=== PATIENT | female | born 1980 | race Caucasian/White ===

== ENCOUNTER 2019-02-12 20:06 | Emergency (ER) | payer MEDICAID ==
[2019-02-12 20:44] VITALS: BP 159/67
--- NOTE | 2019-02-12 21:10 | EDM.PDOC ---
ED HPI GENERAL MEDICAL PROBLEM - General Chief Complaint: Skin Complaint Stated Complaint: RASH Time Seen by Provider: 02/12/19 21:02 Source of Information: Reports: Patient, Family, RN Notes Reviewed History Limitations: Reports: No Limitations - History of Present Illness INITIAL COMMENTS - FREE TEXT/NARRATIVE: 38-year-old female presents emergency department today with complaint of bugs and rash in her scalp - Related Data Allergies Allergy/AdvReac Type Severity Reaction Status Date / Time cephalexin Allergy Rash Verified 09/21/16 21:44 divalproex sodium Allergy Cannot Verified 09/21/16 21:44 [From Depakote] Remember latex Allergy Rash Verified 09/21/16 21:44 Home Meds: Home Meds Albuterol [Proair HFA] 2 puff IH Q6HR PRN 02/27/16 [History] Fluticasone Propionate [Flovent HFA 44 mcg] 2 puff IH BID PRN 02/27/16 [History ] Ranitidine HCl [Ranitidine] 150 mg PO BID 02/27/16 [History] Venlafaxine HCl [Venlafaxine ER] 300 mg PO DAILY 02/27/16 [History] Simvastatin [Zocor] 5 mg PO BEDTIME 08/30/16 [History] Acetaminophen/oxyCODONE [Percocet 325-5 MG] 1 - 2 tab PO Q4H PRN #50 tablet [Rx] Ibuprofen [IJD: Ibuprofen] 600 mg PO QID PRN 09/21/16 [History] Aspirin [[place] Aspirin EC] 81 mg PO DAILY 07/31/18 [History] Carbamide Peroxide [Debrox 6.5% Otic Soln] 5 drop EARBOTH BID 07/31/18 [History] Divalproex Sodium [Depakote] 1,000 mg PO BEDTIME 07/31/18 [History] Divalproex Sodium [Depakote] 500 mg PO DAILY 07/31/18 [History] Polyethylene Glycol 3350 [MiraLAX] 17 g PO DAILY 07/31/18 [History] SUMAtriptan Succinate [Imitrex] 25 mg PO ASDIRECTED PRN 07/31/18 [History] Sennosides/Docusate Sodium [Senokot-S Tablet] 2 tab PO DAILY 07/31/18 [History] Past Medical History HEENT History: Reports: Impaired Vision, Other (See Below) Other HEENT History: glasses Cardiovascular History: Reports: Heart Murmur Other Cardiovascular History: heart murmur as child Respiratory History: Reports: Asthma, Sleep Apnea, SOB Gastrointestinal History: Reports: Gastritis, GERD [employer]OUTE [employer] History: Reports: Musculoskeletal History: Reports: Fracture Neurological History: Reports: Brain Injury, Concussion, CVA, Migraines, Seizure Psychiatric History: Reports: Anxiety, Depression Endocrine/Metabolic History: Reports: Obesity/BMI 30+ - Infectious Disease History Infectious Disease History: Reports: Chicken Pox - Past Surgical History GI Surgical History: Reports: EGD, Hernia Repair/Other Female Surgical History: Reports: Section, Tubal Ligation Musculoskeletal Surgical History: Reports: Other (See Below) Social & Family History - Family History Family Medical History: Noncontributory - Tobacco Use Smoking Status *Q: Current Every Day Smoker Years of Tobacco use: 20 Packs/Tins Daily: 1 - Caffeine Use Caffeine Use: Reports: Coffee - Recreational Drug Use Recreational Drug Use: Yes Drug Use in Last 12 Months: No Recreational Drug Type: Reports: Methamphetamine ED ROS GENERAL - Review of Systems Review Of Systems: See Below Constitutional: Reports: No Symptoms Skin: Reports: Rash, Other (She does have a sample of live bugs that she is pulled off her scalp) ED EXAM, SKIN/RASH Exam: See Below Text/Narrative:: Macular papular rash back of the neck and scalp with itch scratch cycle, small lice are present in her Ziploc bag Exam Limited By: No Limitations General Appearance: Alert, WD/WN, No Apparent Distress Course - Vital Signs Last Recorded V/S: Last Vital Signs Temp 96.2 F 02/12/19 20:58 Pulse 78 02/12/19 20:58 Resp 16 02/12/19 20:58 BP 159/67 H 02/12/19 20:58 Pulse Ox 99 02/12/19 20:58 - Orders/Labs/Meds Orders: Active Orders 24 hr Category Date Time Status Permethrin Med 02/12/19 21:05 Once 1 gm TOP ONETIME ONE Departure - Departure Time of Disposition: 21:09 Disposition: Home, Self-Care 01 Condition: Good Clinical Impression: Pediculosis capitis - Discharge Information Referrals: Dorothea Galarza PA [Primary Care Provider] - Additional Instructions: Take the permethrin treatment follow-up primary care in 5-7 days if no improvement - My Orders Last 24 Hours: My Active Orders 02/12/19 21:05 Permethrin 1 gm TOP ONETIME ONE - Assessment/Plan Last 24 Hours: My Active Orders 02/12/19 21:05 Permethrin 1 gm TOP ONETIME ONE Plan: Assessment Acuity = acute Site and laterality = pediculosis Etiology = lice Manifestations = rash Location of injury = Home Lab values = none Plan Permethrin 1 and may repeat in 7 days follow-up primary care 5-7 days no improvement handout provided lice infection This note was dictated using [employer] voice recognition software please call with any questions on syntax or grammar.
== END 2019-02-12 21:43 | disposition home or self-care (01) ==
LOC: JP.ED 20:06
DX: B85.0 Pediculosis due to Pediculus humanus capitis (principal); R23.8 Other skin changes; J45.909 Unspecified asthma, uncomplicated; F17.210 Nicotine dependence, cigarettes, uncomplicated; Z88.1 Allergy status to other antibiotic agents; Z91.040 Latex allergy status; Z79.899 Other long term (current) drug therapy; Z79.82 Long term (current) use of aspirin
CPT/HCPCS: 99282; A9270-GY

== ENCOUNTER 2019-04-30 17:36 | Emergency (ER) | payer MEDICAID ==
[2019-04-30 17:40] VITALS: BP 141/72; PULSE 70
[2019-04-30] MEDS ORDERED: Amoxicillin/Clavulanate K 500-125 MG Tab PO ONE (17:59)
[2019-04-30] MEDS ORDERED: Ketorolac 60 MG/2 ML SDV IM ONE (17:59)
--- NOTE | 2019-04-30 18:05 | EDM.PDOC ---
ED HPI GENERAL MEDICAL PROBLEM - General Chief Complaint: General Stated Complaint: TOOTH ACHE Time Seen by Provider: 04/30/19 17:46 Source of Information: Reports: Patient History Limitations: Reports: No Limitations - History of Present Illness INITIAL COMMENTS - FREE TEXT/NARRATIVE: 38 yo female presents [facility]IA EMS with left upper dental pain. pt has dental appt in 2 days. over the last 24 hours pain has increased. pt last took tylenol yesterday. afebrile. pt rates pain 8/10 but sitting comfortably on cot. Does state taht she ate a popcycle prior to calling and ambulance and at that time pain was very severe. Left Upper Face/Facial Pain Score (Numeric/FACES): 8 - Related Data Allergies Allergy/AdvReac Type Severity Reaction Status Date / Time cephalexin Allergy Rash Verified 09/21/16 21:44 divalproex sodium Allergy Cannot Verified 09/21/16 21:44 [From Depakote] Remember latex Allergy Rash Verified 09/21/16 21:44 Home Meds: Home Meds Albuterol [Proair HFA] 2 puff IH Q6HR PRN 02/27/16 [History] Fluticasone Propionate [Flovent HFA 44 mcg] 2 puff IH BID PRN 02/27/16 [History ] Ranitidine HCl [Ranitidine] 150 mg PO BID 02/27/16 [History] Venlafaxine HCl [Venlafaxine ER] 300 mg PO DAILY 02/27/16 [History] Simvastatin [Zocor] 5 mg PO BEDTIME 08/30/16 [History] Acetaminophen/oxyCODONE [Percocet 325-5 MG] 1 - 2 tab PO Q4H PRN #50 tablet [Rx] Ibuprofen [IJD: Ibuprofen] 600 mg PO QID PRN 09/21/16 [History] Aspirin [[place] Aspirin EC] 81 mg PO DAILY 07/31/18 [History] Carbamide Peroxide [Debrox 6.5% Otic Soln] 5 drop EARBOTH BID 07/31/18 [History] Divalproex Sodium [Depakote] 1,000 mg PO BEDTIME 07/31/18 [History] Divalproex Sodium [Depakote] 500 mg PO DAILY 07/31/18 [History] Polyethylene Glycol 3350 [MiraLAX] 17 g PO DAILY 07/31/18 [History] SUMAtriptan Succinate [Imitrex] 25 mg PO ASDIRECTED PRN 07/31/18 [History] Sennosides/Docusate Sodium [Senokot-S Tablet] 2 tab PO DAILY 07/31/18 [History] Past Medical History HEENT History: Reports: Impaired Vision, Other (See Below) Other HEENT History: glasses Cardiovascular History: Reports: Heart Murmur Other Cardiovascular History: heart murmur as child Respiratory History: Reports: Asthma, Sleep Apnea, SOB Gastrointestinal History: Reports: Gastritis, GERD [employer] History: Reports: Musculoskeletal History: Reports: Fracture Neurological History: Reports: Brain Injury, Concussion, CVA, Migraines, Seizure Psychiatric History: Reports: Anxiety, Depression Endocrine/Metabolic History: Reports: Obesity/BMI 30+ - Infectious Disease History Infectious Disease History: Reports: Chicken Pox - Past Surgical History Head Surgeries/Procedures: Reports: None GI Surgical History: Reports: EGD, Hernia Repair/Other Female Surgical History: Reports: Section, Tubal Ligation Musculoskeletal Surgical History: Reports: Other (See Below) Social & Family History - Family History Family Medical History: Noncontributory - Tobacco Use Smoking Status *Q: Light Tobacco Smoker Years of Tobacco use: 30 Packs/Tins Daily: 1 - Caffeine Use Caffeine Use: Reports: Coffee - Recreational Drug Use Recreational Drug Use: No ED ROS GENERAL - Review of Systems Review Of Systems: See Below Constitutional: Denies: Fever, Chills Respiratory: Denies: Shortness of Breath, Wheezing Cardiovascular: Denies: Chest Pain ED EXAM, GENERAL - Physical Exam Exam: See Below Exam Limited By: No Limitations General Appearance: Alert, WD/WN, No Apparent Distress Throat/Mouth: Inflammation, Other (poor dentation, edema surrounding the broken teeth.) Neurological: Alert, Oriented Lymphatic: No Adenopathy Course - Vital Signs Last Recorded V/S: Last Vital Signs Temp 37.2 C 04/30/19 17:40 Pulse 70 04/30/19 17:40 Resp 16 04/30/19 17:40 BP 141/72 H 04/30/19 17:40 Pulse Ox 88 L 04/30/19 17:40 - Orders/Labs/Meds Meds: Medications Discontinued Medications Generic Name Dose Route Start Last Admin Trade Name Freq PRN Reason Stop Dose Admin Amoxicillin/Clavulanate Potassium 1 tab 04/30/19 17:59 Augmentin 500 Mg\125 Mg PO 04/30/19 18:00 ONETIME ONE Ketorolac Tromethamine 60 mg 04/30/19 17:59 Toradol IM 04/30/19 18:00 ONETIME ONE - Re-Assessments/Exams Free Text/Narrative Re-Assessment/Exam: 04/30/19 18:33 given oral and IM pain medications Departure - Departure Time of Disposition: 18:33 Disposition: Home, Self-Care 01 Condition: Good Clinical Impression: Pain, dental - Discharge Information *PRESCRIPTION DRUG MONITORING PROGRAM REVIEWED*: Yes *COPY OF PRESCRIPTION DRUG MONITORING REPORT IN PATIENT KIMBERLY: Not Applicable (i did not prescribe controled medication) Referrals: PCP,None [Primary Care Provider] - Forms: ED Department Discharge Additional Instructions: AUGMENTIN 500 twice daily for 10 days, first dose was given in emergency room Ibuprofen 600 mg every 6 hours as needed for pain may use tylenol 1000 mg every 6 hours for break through pain ice to jaw
== END 2019-04-30 18:57 | disposition home or self-care (01) ==
LOC: JP.ED 17:36
DX: K08.89 Other specified disorders of teeth and supporting structures (principal); J45.909 Unspecified asthma, uncomplicated; F17.210 Nicotine dependence, cigarettes, uncomplicated; Z88.1 Allergy status to other antibiotic agents; Z91.040 Latex allergy status; Z79.899 Other long term (current) drug therapy
CPT/HCPCS: 96372; 99282; A9270; J1885

== ENCOUNTER 2021-08-30 19:17 | Emergency (ER) | payer MEDICAID ==
--- NOTE | 2021-08-30 19:47 | EDM.PDOC ---
ED HPI GENERAL MEDICAL PROBLEM - General Chief Complaint: Chest Pain Stated Complaint: [facility] Time Seen by Provider: 08/30/21 19:43 Source of Information: Reports: Patient, EMS History Limitations: Reports: No Limitations - History of Present Illness INITIAL COMMENTS - FREE TEXT/NARRATIVE: pt drveloped upper abdomanal pain which then did move to her chest. By the time she got here her pain was back in the abdoman. Onset: Sudden Duration: Hour(s): Location: Reports: Chest, Abdomen Associated Symptoms: Reports: Chest Pain, Other ( epigastric pain) epigastric Pain Score (Numeric/FACES): 8 - Related Data Allergies Allergy/AdvReac Type Severity Reaction Status Date / Time cephalexin Allergy Rash Verified 08/30/21 19:31 divalproex sodium Allergy Cannot Verified 08/30/21 19:31 [From Depakote] Remember latex Allergy Rash Verified 08/30/21 19:31 Home Meds: Home Meds Albuterol [Proair HFA] 2 puff IH Q6HR PRN 02/27/16 [History] Fluticasone Propionate [Flovent HFA 44 mcg] 2 puff IH BID PRN 02/27/16 [History] Simvastatin [Zocor] 5 mg PO BEDTIME 08/30/16 [History] Acetaminophen/oxyCODONE [Percocet 325-5 MG] 1 - 2 tab PO Q4H PRN #50 tablet 09/01/16 [Rx] Ibuprofen [IJD: Ibuprofen] 600 mg PO QID PRN 09/21/16 [History] Aspirin [[place] Aspirin EC] 81 mg PO DAILY 07/31/18 [History] Carbamide Peroxide [Debrox 6.5% Otic Soln] 5 drop EARBOTH BID 07/31/18 [History] Divalproex Sodium [Depakote] 1,000 mg PO BEDTIME 07/31/18 [History] Divalproex Sodium [Depakote] 500 mg PO DAILY 07/31/18 [History] SUMAtriptan succinate [Imitrex] 25 mg PO ASDIRECTED PRN 07/31/18 [History] Sennosides/Docusate Sodium [Senokot-S Tablet] 2 tab PO DAILY 07/31/18 [History] polyethylene glycoL 3350 [MiraLAX] 17 g PO DAILY 07/31/18 [History] Past Medical History HEENT History: Reports: Impaired Vision, Other (See Below) Other HEENT History: glasses Cardiovascular History: Reports: Heart Murmur, [place] Other Cardiovascular History: heart murmur as child Respiratory History: Reports: Asthma, Sleep Apnea, SOB Gastrointestinal History: Reports: Gastritis, GERD Genitourinary History: Reports: None [employer] History: Reports: Musculoskeletal History: Reports: Fracture Neurological History: Reports: Brain Injury, Concussion, CVA, Migraines, Seizure Psychiatric History: Reports: Anxiety, Depression Endocrine/Metabolic History: Reports: Obesity/BMI 30+ - Infectious Disease History Infectious Disease History: Reports: Chicken Pox - Past Surgical History Head Surgeries/Procedures: Reports: None Respiratory Surgical History: Reports: None GI Surgical History: Reports: EGD, Hernia Repair/Other, Other (See Below) Other GI Surgeries/Procedures: umbilical hernia repair Female Surgical History: Reports: Section, Tubal Ligation Endocrine Surgical History: Reports: None Neurological Surgical History: Reports: None Musculoskeletal Surgical History: Reports: Other (See Below) Other Musculoskeletal Surgeries/Procedures:: right foot fracture Social & Family History - Family History Family Medical History: No Pertinent Family History - Tobacco Use Tobacco Use Status *Q: Current Every Day Tobacco User Years of Tobacco use: 25 Packs/Tins Daily: 1 - Caffeine Use Caffeine Use: Reports: Coffee - Recreational Drug Use Recreational Drug Use: No ED ROS GENERAL - Review of Systems Review Of Systems: See Below Constitutional: Reports: Malaise, Decreased Appetite HEENT: Reports: No Symptoms Cardiovascular: Reports: Chest Pain Endocrine: Reports: No Symptoms GI/Abdominal: Reports: Abdominal Pain : Reports: No Symptoms Musculoskeletal: Reports: No Symptoms Skin: Reports: No Symptoms Neurological: Reports: No Symptoms Psychiatric: Reports: Anxiety ED EXAM, GENERAL - Physical Exam Exam: See Below Free Text/Narrative:: pt arrived stating that she is not feeling well. She feels that the tramodol is not setting with the rest of her meds. She is having midabdomanal pain. pt is alot more sob than usual. She is breathuing rapidly. Exam Limited By: No Limitations General Appearance: Alert, Anxious, Mild Distress Ears: Normal TMs Nose: Normal Inspection Throat/Mouth: Normal Inspection Head: Atraumatic Neck: Normal Inspection Respiratory/Chest: Decreased Breath Sounds, Other ( rapid resp. ) Cardiovascular: Regular Rate, Rhythm GI/Abdominal: Tender (Female) Exam: Deferred Rectal (Female) Exam: Deferred Back Exam: Normal Inspection Extremities: Normal Inspection Neurological: Alert, Oriented, Normal Cognition Course - Vital Signs Last Recorded V/S: Last Vital Signs Temp 36.5 C 08/30/21 19:35 Pulse 74 08/30/21 21:08 Resp 14 08/30/21 20:35 BP 115/53 L 08/30/21 21:08 Pulse Ox 100 08/30/21 19:35 - Orders/Labs/Meds Labs: Laboratory Tests 08/30/21 08/30/21 08/30/21 Range/Units 19:32 19:32 19:32 WBC 8.1 (4.5-11.0) K/uL RBC 4.54 (3.30-5.50) M/uL Hgb 14.1 (12.0-15.0) g/dL Hct 42.7 (36.0-48.0) % MCV 94 (80-98) fL MCH 31 (27-31) pg MCHC 33 (32-36) % Plt Count 290 (150-400) K/uL Neut % (Auto) 54.9 (36-66) % Lymph % (Auto) 33.9 (24-44) % Jenkins % (Auto) 8.1 H (2-6) % Eos % (Auto) 2.7 (2-4) % Baso % (Auto) 0.4 (0-1) % Sodium 144 (140-148) mmol/L Potassium 4.5 (3.6-5.2) mmol/L Chloride 108 (100-108) mmol/L Carbon Dioxide 27 (21-32) mmol/L Anion Gap 8.6 (5.0-14.0) mmol/L BUN 17 (7-18) mg/dL Creatinine 1.0 (0.6-1.0) mg/dL Est Cr Clr Drug Dosing 67.29 mL/min Estimated GFR (MDRD) > 60 (>60) Glucose 89 (74-106) mg/dL Calcium 8.7 (8.5-10.1) mg/dL Total Bilirubin 0.3 (0.2-1.0) mg/dL AST 13 L (15-37) U/L ALT 20 (12-78) U/L Alkaline Phosphatase 79 (46-116) U/L Troponin I (0.000-0.056) ng/mL C-Reactive Protein 0.09 (0.0-0.3) mg/dL Total Protein 7.3 (6.4-8.2) g/dL Albumin 3.4 (3.4-5.0) g/dL Globulin 3.9 H (2.3-3.5) g/dL Albumin/Globulin Ratio 0.9 L (1.2-2.2) Amylase 42 (25-115) U/L Lipase 104 (73-393) U/L 08/30/21 Range/Units 20:04 WBC (4.5-11.0) K/uL RBC (3.30-5.50) M/uL Hgb (12.0-15.0) g/dL Hct (36.0-48.0) % MCV (80-98) fL MCH (27-31) pg MCHC (32-36) % Plt Count (150-400) K/uL Neut % (Auto) (36-66) % Lymph % (Auto) (24-44) % Jenkins % (Auto) (2-6) % Eos % (Auto) (2-4) % Baso % (Auto) (0-1) % Sodium (140-148) mmol/L Potassium (3.6-5.2) mmol/L Chloride (100-108) mmol/L Carbon Dioxide (21-32) mmol/L Anion Gap (5.0-14.0) mmol/L BUN (7-18) mg/dL Creatinine (0.6-1.0) mg/dL Est Cr Clr Drug Dosing mL/min Estimated GFR (MDRD) (>60) Glucose (74-106) mg/dL Calcium (8.5-10.1) mg/dL Total Bilirubin (0.2-1.0) mg/dL AST (15-37) U/L ALT (12-78) U/L Alkaline Phosphatase (46-116) U/L Troponin I < 0.017 (0.000-0.056) ng/mL C-Reactive Protein (0.0-0.3) mg/dL Total Protein (6.4-8.2) g/dL Albumin (3.4-5.0) g/dL Globulin (2.3-3.5) g/dL Albumin/Globulin Ratio (1.2-2.2) Amylase (25-115) U/L Lipase (73-393) U/L Meds: Medications Discontinued Medications Generic Name Dose Route Start Last Admin Trade Name [place] PRN Reason Stop Dose Admin Al Hydroxide/Mg Hydroxide 15 0 ml 08/30/21 20:03 ml/ Lidocaine HCl 15 ml PO 08/30/21 20:04 ONETIME ONE Pantoprazole Sodium 40 mg 08/30/21 20:31 08/30/21 20:47 Pantoprazole 40 Mg Vial IVPUSH 08/30/21 20:32 40 mg ONETIME ONE Administration - Re-Assessments/Exams Free Text/Narrative Re-Assessment/Exam: 09/02/21 07:38 pt started with abdomanal pain which moved to her chest. Whn she got here she was once again having abdomanal pain 09/02/21 07:39 pt had a neg trop and hr pain did go completely away. Departure - Departure Time of Disposition: 21:43 Disposition: Home, Self-Care 01 Condition: Fair Clinical Impression: Abdominal pain, Chronic GERD, Gallbladder attack Instructions: Abdominal Pain, Adult, Gastroesophageal Reflux Disease, Adult Referrals: PCP,None [Primary Care Provider] - Forms: ED Department Discharge Care Plan Goals: Return to clinic as an outpatient for limited abdomen Ultra sound, they will call to set up appointment, Pepcid 20mg twice daily , schedule appt with [facility] followup and for results of the abdominal ultra sound. Sepsis Event Note (ED) - Evaluation Sepsis Screening Result: No Definite Risk
[2021-08-30] MEDS ORDERED: Alum Hydrox/Mag Hydrox/Simeth 15 ML, Lidocaine 2% 15 ML PO ONE ×2 (20:03)
[2021-08-30] MEDS ORDERED: Pantoprazole 40 MG Vial IVPUSH ONE (20:31)
[2021-08-30 21:09] VITALS: BP 115/53; PULSE 74
== END 2021-08-30 21:58 | disposition home or self-care (01) ==
LOC: JP.ED 19:17
DX: K21.9 Gastro-esophageal reflux disease without esophagitis (principal); K82.9 Disease of gallbladder, unspecified; I25.2 Old myocardial infarction; E66.9 Obesity, unspecified; Z86.73 Personal history of transient ischemic attack (TIA), and cerebral infarction without residual deficits; Z88.1 Allergy status to other antibiotic agents; Z91.040 Latex allergy status; Z88.8 Allergy status to other drugs, medicaments and biological substances; Z72.0 Tobacco use; Z68.38 Body mass index [BMI] 38.0-38.9, adult
CPT/HCPCS: 36415; 80053; 82150; 83690; 84484; 85025; 86140; 93005; 96374; 99284; C9113

== ENCOUNTER 2022-03-23 18:37 | Emergency (ER) | payer MEDICAID ==
[2022-03-23 19:12] VITALS: BP 150/74; PULSE 96
== END 2022-03-23 20:36 | disposition home or self-care (01) ==
LOC: JP.ED 18:37
DX: S83.411A Sprain of medial collateral ligament of right knee, initial encounter (principal); E78.00 Pure hypercholesterolemia, unspecified; I25.2 Old myocardial infarction; K21.9 Gastro-esophageal reflux disease without esophagitis; F17.210 Nicotine dependence, cigarettes, uncomplicated; E66.9 Obesity, unspecified; Z68.38 Body mass index [BMI] 38.0-38.9, adult; Z88.1 Allergy status to other antibiotic agents; Z91.040 Latex allergy status; Z88.8 Allergy status to other drugs, medicaments and biological substances; Z79.82 Long term (current) use of aspirin; Z79.899 Other long term (current) drug therapy; Z86.73 Personal history of transient ischemic attack (TIA), and cerebral infarction without residual deficits; W18.39XA Other fall on same level, initial encounter
CPT/HCPCS: 73564-26-RT; 73564-RT; 99282; 99283

== ENCOUNTER 2023-06-20 11:08 | Emergency (ER) | payer MEDICAID ==
[2023-06-20 11:23] VITALS: BP 129/110; PULSE 83
== END 2023-06-20 13:36 | disposition home or self-care (01) ==
LOC: JP.ED 11:08
DX: Z53.21 Procedure and treatment not carried out due to patient leaving prior to being seen by health care provider (principal)

== ENCOUNTER 2024-11-23 18:30 | Emergency (ER) | payer MEDICAID ==
[2024-11-23 19:51] LABS: BASOPHILS ABSOLUTE AUTO 0.05 K/uL (0.00-0.10); BASOPHILS PERCENT AUTO 0.4 % (0.1-1.3); EOSINOPHILS ABSOLUTE AUTO 0.19 K/uL (0.00-0.40); EOSINOPHILS PERCENT AUTO 1.7 % (0.0-5.4); HEMATOCRIT 42.5 % (34.3-46.0); HEMOGLOBIN 14.3 g/dL (11.2-15.5); IMMATURE GRAN ABSOLUTE AUTO 0.03 K/uL (0.00-0.23); IMMATURE GRAN PERCENT AUTO 0.3 % (0.0-0.7); LYMPHOCYTES ABSOLUTE AUTO 1.59 K/uL (0.8-3.3); LYMPHOCYTES PERCENT AUTO 13.9 % (11.4-47.7); MEAN CORPUSCULAR HEMOGLOBIN 31.4 pg (31.6-35.5); MEAN CORPUSCULAR HGB CONC 33.6 g/dL (31.6-35.5); MEAN CORPUSCULAR VOLUME 93.4 fL (81.4-99.0); MONOCYTES ABSOLUTE AUTO 0.66 K/uL (0.20-0.90); MONOCYTES PERCENT AUTO 5.8 % (3.3-12.6); NEUTROPHILS ABSOLUTE AUTO 8.94 K/uL (1.0-7.6); NEUTROPHILS PERCENT AUTO 77.9 % (40.0-78.1); PLATELET COUNT,PLT 165 K/uL (130-375); RED BLOOD CELL COUNT 4.55 M/uL (3.77-5.24); WHITE BLOOD CELL COUNT,WBC 11.5 K/uL (3.2-11.0)
[2024-11-23 20:08] LABS: A/G RATIO 0.8 (1.2-2.2); ALANINE AMINOTRANSFERASE,ALT 17 U/L (12-78); ALBUMIN 3.8 g/dL (3.4-5.0); ALKALINE PHOSPHATASE 102 U/L (46-116); ASPARTATE AMNIOTRANSFERASE,AST 14 U/L (15-37); BILIRUBIN TOTAL 1.4 mg/dL (0.2-1.0); BLOOD UREA NITROGEN,BUN 20 mg/dL (7-18); CALCIUM 9.2 mg/dL (8.5-10.1); CARBON DIOXIDE,CO2 26 mmol/L (21-32); CHLORIDE,CL 104 mmol/L (100-108); CREATININE 1.1 mg/dL (0.6-1.0); ESTIMATED GFR 64 mL/min (>60); GLUCOSE RANDOM 91 mg/dL (74-106); POTASSIUM,K 4.3 mmol/L (3.6-5.2); PROTEIN TOTAL,TP 8.4 g/dL (6.4-8.2); SODIUM,NA 139 mmol/L (140-148)
[2024-11-23 20:09] LABS: ANION GAP 13.3 mmol/L (5.0-14.0)
[2024-11-23 20:14] VITALS: BP 117/73; PULSE 81
[2024-11-23] MEDS: Acetaminophen Soln 650 MG/20.3 ML UD Cup PO ONE (20:34)
[2024-11-23 20:39] LABS: APPEARANCE,URINE SLIGHTLY CLOUDY (CLEAR); BILIRUBIN,URINE NEGATIVE (NEGATIVE); COLOR,URINE YELLOW (YELLOW); GLUCOSE,URINE NEGATIVE (NEGATIVE); KETONES,URINE NEGATIVE (NEGATIVE); LEUKOCYTE ESTERASE,URINE NEGATIVE (NEGATIVE); NITRITE,URINE NEGATIVE (NEGATIVE); OCCULT BLOOD,URINE TRACE-INTACT (NEGATIVE); PH,URINE 5.5 (5.0-8.0); PROTEIN,URINE 100 mg/dL (NEGATIVE); UROBILINOGEN,URINE 0.2 EU/dL (0.2-1.0)
[2024-11-23 20:48] LABS: AMORPHOUS SEDIMENT,URINE NOT SEEN; BACTERIA,URINE MODERATE; EPITHELIAL CELLS,URINE MANY; MUCUS,URINE FEW; WBC,URINE 0-5 (0-5)
== END 2024-11-23 21:15 | disposition home or self-care (01) ==
LOC: JP.ED 18:30
DX: R56.9 Unspecified convulsions (principal); E78.00 Pure hypercholesterolemia, unspecified; I25.2 Old myocardial infarction; Z88.1 Allergy status to other antibiotic agents; Z91.040 Latex allergy status; Z86.73 Personal history of transient ischemic attack (TIA), and cerebral infarction without residual deficits; Z88.8 Allergy status to other drugs, medicaments and biological substances; Z79.51 Long term (current) use of inhaled steroids; Z79.899 Other long term (current) drug therapy
CPT/HCPCS: 36415; 70450; 80053; 81001; 85025; 99284; 99285; A9270-GY